=== PATIENT | male | born 1935 | race Caucasian/White ===

== ENCOUNTER 2022-09-27 10:18 | Outpatient (REF) | payer MEDICARE, SELFPAY ==
[2022-09-27 11:15] VITALS: BMI 33.9
[2022-09-27 11:17] VITALS: BP 180/79; PULSE 88; RESP 18; TEMP 36.8; O2SAT 98
== END 2022-09-27 10:19 | disposition home or self-care (01) ==
LOC: HO.MS 10:18
PROVIDERS: PCP Pediatrics; Visit Provider Ophthalmology
PROC: (CPT 66821; principal; 2022-09-27 13:50)
DX: H26.492 Other secondary cataract, left eye (principal)
CPT/HCPCS: 66821